=== PATIENT | female | born 1995 | race Caucasian/White ===

== ENCOUNTER → 2018-04-09 10:59 | Outpatient (CLI) | payer MEDICAID, SELFPAY ==
--- NOTE | 2018-04-09 11:03 | XR_ITS ---
XR wrist LT w scaphoid HISTORY ITS.REASON: pain ORDERING PHYSICIAN: Maryam Weldon PATIENT AGE: 23 years Comparison: None TECHNIQUE: 4 views including scaphoid view FINDINGS: No fracture or dislocation. No lytic or blastic change. There is normal mineralization.. The joint spaces are well-preserved. No significant degenerative/arthritic changes. No erosive changes evident.. IMPRESSION: Negative wrist
== END ==
PROVIDERS: PCP Nurse Practitioner Family; Visit Provider Nurse Practitioner Family
DX: M25.532 Pain in left wrist (principal)
CPT/HCPCS: 73110

== ENCOUNTER → 2018-04-19 18:06 | Outpatient (CLI) | payer MEDICAID, SELFPAY ==
[2018-04-19 18:55] LABS: Basophils % 0.3 % (0.1-2.0); Eosinophils # 0.3 K/mm3 (0.0-0.4); Eosinophils % 3.1 % (0.1-12.0); Hematocrit 41.8 % (37.0-47.0); Lymphocytes # 2.7 K/mm3 (0.7-4.5); Lymphocytes % 28.8 % (10-50); Mean Corpuscular Hemoglobin 24.2 pg (27.0-31.2); Mean Corpuscular Volume 77.9 fl (81-99); Mean Platelet Volume 8.4 fl (7.4-10.4); Monocytes # 0.4 K/mm3 (0.1-1.0); Monocytes % 3.8 % (1.7-9.3); Neutrophils % 64.1 % (37.0-80.0); Platelet Count 384 K/mm3 (142-424); Red Blood Count 5.37 M/mm3 (4.20-5.40); Red Cell Distribution Width 15.7 % (11.5-17.5); White Blood Count 9.4 K/mm3 (4.8-10.8)
[2018-04-19 19:18] LABS: Alanine Aminotransferase 20 U/L (12-78); Albumin Level 4.6 gm/dL (3.4-5.0); Albumin/Globulin Ratio 1.2 (1.1-1.8); Alkaline Phosphatase 116 U/L (46-116); Anion Gap 16.8 mEq/L (5-15); Aspartate Amino Transferase 18 U/L (15-37); Bilirubin,Total 0.4 mg/dL (0.2-1.0); Blood Urea Nitrogen 1 mg/dL (7-18); Calcium 9.6 mg/dL (8.5-10.1); Carbon Dioxide 26 mmol/L (21.0-32.0); Chloride 104 mmol/L (98-107); Chol/HDL Ratio 3.3 (1-3.5); Cholesterol 183 mg/dL (140-200); Creatinine,Serum 0.56 mg/dL (0.55-1.02); Estimated Glomerular Filt Rate 135 ml/min (>60); Free T4 (Free Thyroxine) 0.98 ng/dl (0.76-1.46); GFR (African American) 164 ML/MIN (>60); Globulin 3.7 gm/dl (1.3-3.2); Glucose 88 mg/dL (74-106); HDL Cholesterol 55 mg/dL (29-89); LDL Cholesterol 103 mg/dL (0-130); Potassium 3.8 mmoL/L (3.5-5.1); Sodium 143 mmol/L (136-145); Thyroid Stimulating Hormone 2.52 uIU/ml (0.358-3.740); Total Protein,Serum 8.3 gm/dL (6.4-8.2); Triglycerides 123 mg/dL (30-200); VLDL Cholesterol 25 mg/dL (0-40)
[2018-04-19 19:19] LABS: C-Reactive Protein < 0.2 mg/L (0.0-0.9)
[2018-04-19 19:26] LABS: Erythrocyte Sedimentation Rate 21 mm/hr (0-20)
[2018-04-22 03:56] LABS: RA Latex Turbid. <10.0 IU/mL (0.0-13.9)
[2018-04-22 14:17] LABS: Anti-Centromere B Antibodies <0.2 AI (0.0-0.9); Anti-Jo-1 <0.2 AI (0.0-0.9); Anti-Smith Antibody <0.2 AI (0.0-0.9); Antichromatin Antibodies <0.2 AI (0.0-0.9); Antiscleroderma-70 Antibodies <0.2 AI (0.0-0.9); RNP Antibodies <0.2 AI (0.0-0.9); Sjogren's Anti-SS-A <0.2 AI (0.0-0.9); Sjogren's Anti-SS-B <0.2 AI (0.0-0.9)
[2018-04-22 16:20] LABS: Anti-DNA (DS) Ab Qn 1 IU/mL (0-9); Vitamin D 25 Hydroxy 21.2 ng/mL (30.0-100.0)
[2018-04-23 06:09] LABS: Anti-Cyclic Citrullinated Pept 14 units (0-19)
== END ==
PROVIDERS: Visit Provider Nurse Practitioner Family
DX: R53.83 Other fatigue (principal); M25.532 Pain in left wrist; E55.9 Vitamin D deficiency, unspecified
CPT/HCPCS: 80053; 80061; 82652; 84439; 84443; 85025; 85651; 86140; 86200; 86225; 86235; 86431

== ENCOUNTER → 2018-04-23 09:09 | Outpatient (CLI) | payer MEDICAID, SELFPAY ==
--- NOTE | 2018-04-23 09:11 | FL_ITS ---
EXAM: Barium swallow/esophagram. INDICATION: ITS.REASON: Dysphagia ORDERING PHYSICIAN: Ivan Adams MD PATIENT AGE: 23 years COMPARISON: None TECHNIQUE: In the upright position the patient was observed to swallow barium in both the AP and lateral view. The cervical esophagus was examined under fluoroscopy with images obtained. The patient was then placed prone in the right anterior oblique position and was observed to swallow barium with Valsalva technique . FLUOROSCOPY TIME: 53 seconds FINDINGS: There was no evidence of aspiration. There was normal peristalsis. No filling defects or mucosal abnormalities. No masses or strictures. There is a small sliding hiatal with a mildly constricting Schatzki's ring. This did permit the passage of a 12.5 mm barium tablet without difficulty. IMPRESSION: Mildly constricting chest is ring with small sliding hiatal hernia
[2018-04-23 11:17] LABS: Basophils % 0.4 % (0.1-2.0); Eosinophils # 0.3 K/mm3 (0.0-0.4); Eosinophils % 3.9 % (0.1-12.0); Hematocrit 41.6 % (37.0-47.0); Hemoglobin 12.9 g/dL (12.2-16.2); Lymphocytes # 1.9 K/mm3 (0.7-4.5); Lymphocytes % 26.5 % (10-50); Mean Corpuscular Hemoglobin 23.8 pg (27.0-31.2); Mean Platelet Volume 8.1 fl (7.4-10.4); Monocytes # 0.4 K/mm3 (0.1-1.0); Monocytes % 5.2 % (1.7-9.3); Neutrophils # 4.5 K/mm3 (1.8-7.8); Platelet Count 323 K/mm3 (142-424); Red Blood Count 5.41 M/mm3 (4.20-5.40); Red Cell Distribution Width 15.3 % (11.5-17.5); White Blood Count 7.1 K/mm3 (4.8-10.8)
[2018-05-03 20:09] LABS: Epstein-Barr DNA Quant, PCR NEGATIVE
== END ==
PROVIDERS: PCP Nurse Practitioner Family; Visit Provider Otolaryngology
DX: R13.10 Dysphagia, unspecified (principal)
CPT/HCPCS: 36415; 74220; 85025; 87799

== ENCOUNTER → 2018-04-23 10:08 | Outpatient (CLI) | payer MEDICAID, SELFPAY | PROVIDERS: PCP Emergency Medicine; Visit Provider Otolaryngology | DX: R13.10 Dysphagia, unspecified (principal) | CPT/HCPCS: 36415; 85025; 87799 ==

== ENCOUNTER → 2019-12-01 17:01 | Outpatient (CLI) | payer MEDICAID, SELFPAY ==
[2019-12-01 17:14] LABS: Basophils % 0.3 % (0.1-2.0); Eosinophils # 0.3 K/mm3 (0.0-0.4); Eosinophils % 2.7 % (0.1-12.0); Hematocrit 38.3 % (37.0-47.0); Hemoglobin 12.5 g/dL (12.2-16.2); Lymphocytes # 3.6 K/mm3 (0.7-4.5); Lymphocytes % 32.4 % (10-50); Mean Corpuscular HGB Conc 32.7 g/dL (31.8-35.4); Mean Corpuscular Volume 76.5 fl (81-99); Mean Platelet Volume 8.7 fl (7.4-10.4); Monocytes # 0.4 K/mm3 (0.1-1.0); Monocytes % 3.6 % (1.7-9.3); Neutrophils # 6.7 K/mm3 (1.8-7.8); Neutrophils % 61.1 % (37.0-80.0); Platelet Count 392 K/mm3 (142-424); Red Cell Distribution Width 15.8 % (11.5-17.5)
[2019-12-01 17:15] LABS: Chloride 105 mmol/L (98-107); Potassium 4.1 mmoL/L (3.5-5.1); Sodium 139 mmol/L (136-145)
[2019-12-01 17:18] LABS: Alanine Aminotransferase 26 U/L (12-78); Albumin Level 4.7 g/dl (3.5-5.0); Albumin/Globulin Ratio 1.5 (1.1-1.8); Alkaline Phosphatase 117 U/L (38-126); Anion Gap 13.1 mEq/L (5-15); Aspartate Amino Transferase 29 U/L (14-36); Bilirubin,Total 0.5 mg/dl (0.2-1.3); Carbon Dioxide 25 mmol/L (22.0-30.0); Cholesterol 198 mg/dl (140-200); Estimated Glomerular Filt Rate 153 ml/min (>60); GFR (African American) 185 ML/MIN (>60); Globulin 3.2 g/dL (1.3-3.2); Total Protein,Serum 7.9 g/dl (6.3-8.2); Triglycerides 165 mg/dl (30-150); VLDL Cholesterol 33 mg/dL (0-40)
[2019-12-01 17:19] LABS: Calcium 9.7 mg/dl (8.4-10.2); Chol/HDL Ratio 3.7 (1-3.5); Glucose 101 mg/dl (74-100); HDL Cholesterol 54 mg/dl (40-60)
[2019-12-01 17:30] LABS: Direct LDL Cholesterol 122.52 mg/dL (100-129)
[2019-12-01 17:36] LABS: T4 (Thyroxine) 11.7 ug/dl (5.53-11.0)
[2019-12-01 17:49] LABS: Thyroid Stimulating Hormone 2.39 uIU/mL (0.465-4.68)
[2019-12-01 21:34] LABS: Blood Urea Nitrogen < 2 mg/dl (7-17)
[2019-12-07 08:33] LABS: 1,25 Dihydroxy Vitamin D 83 pg/mL (.); 1,25-Dihydroxy, Vitamin D-2 <10 pg/mL (.); 1,25-Dihydroxy, Vitamin D-3 83 pg/mL (.)
== END ==
PROVIDERS: Visit Provider Physician Assistant
DX: R53.83 Other fatigue (principal); R63.5 Abnormal weight gain; E67.3 Hypervitaminosis D
CPT/HCPCS: 80053; 80061; 82652; 84436; 84443; 85025

== ENCOUNTER → 2019-12-17 11:01 | Outpatient (CLI) | payer MEDICAID, SELFPAY ==
--- NOTE | 2019-12-17 11:03 | FL_ITS ---
PROCEDURE: FL BARIUM SWALLOW MODIFIED CLINICAL INDICATION: Dyphagia COMPARISON: No exams were available for comparison TECHNIQUE: Patient administered varying consistencies of barium contrast, while viewed in lateral position under real-time fluoroscopy with cine recording. FLUOROSCOPY TIME: The study was performed in conjunction with speech pathologist. Please see that report & recommendations. FINDINGS: Patient was given varying consistencies of barium. No tracheal aspiration or obvious penetration. The patient was only able to swallow small volume at a time IMPRESSION: . No aspiration or penetration Please see speech pathologist report and recommendations. Dictated by: Liam Houser MD 12/23/2019 16:04 Electronically signed by Liam Houser MD in [place] 12/23/2019 16:04
--- NOTE | 2019-12-17 13:15 | HMH.SLMBS2 ---
Speech & Language Evaluation Speech/Language Mod Barium Swallow Start: 12/17/19 11:42 Freq: once Status: Complete Protocol: Document 12/17/19 12:45 ERINN (Rec: 12/17/19 13:14 ERINN [id number]) General Information General Current Food Consistancy Regular,Thin Liquids Dentition Good Dentition Oxygen Status Room Air Facial Symmetry Symmetrical Patient Orientation Person,Place,Time,Situation Ability to Follow Directions Excellent Communication Ability No Impairment MBS Recommendations Diet Dietary Recommendations Regular,Thin Liquids Treatment/Strategies Treatment Recommendation Base of Tongue Exercises,Vocal Cord Adduction Exer Referrals/Other Other Recommendations Ms. London is having a scope on the 05 of January. Mod Barium Swallow Impressions Summary and Impressions Oral Phase Impression No Impairment (WFL) Oral Phase Summary Ms. London was given the following consistencies: thins via spoon, open cup, straw, pudding, pureed, mechanical soft, regular, mixed, and pill with thin wash. Pharyngeal Phase Impression Mild Impairment Pharyngeal Phase Summary Ms. London exhibited premature spillage over the back of the tongue and flash penetration with consecutive swallows of thin liquids however, inconsistent during trials. Speech/Language MBS Assessment/Goals/Plan Assessment Date of Evaluation: 12/17/19 Evaluation Type Initial Certification Assessment/Problems feels like something stuck Does Patient Qualify for Service Yes Qualify/Failure Comment Ms. London would benefit from dysphagia therapy to target decreasing premature spillage into laryngeal vestibule and flash penetration into laryngeal vestibule. Recommendations PHYSICIAN CERTIFICATION: The specified therapy services are required, authorized, and reviewed every 30 days. Pt will be seen # times/week 2 for # weeks 4 Diet Recommendations Normal Liquid Type Recommendations Normal/Thin Plan Anticipate reaching STG in # weeks 2 Anticipate reaching LTG in # weeks 4 Pt/Guardian verbally ack understanding Yes of dx/prognosis/goals G -code Required No STG-Other Comment/Non-Specific Ms. London will improve
== END ==
PROVIDERS: PCP Physician Assistant; Visit Provider Physician Assistant
DX: R13.10 Dysphagia, unspecified (principal)
CPT/HCPCS: 70371; 92611

== ENCOUNTER → 2020-01-05 12:12 | Outpatient (CLI) | payer MEDICAID, SELFPAY ==
[2020-01-05 20:19] LABS: Coronavirus 19 IgG Antibody Positive (Negative); Coronavirus 19 IgM Antibody Negative (Negative)
== END ==
PROVIDERS: Visit Provider Surgery
DX: Z01.818 Encounter for other preprocedural examination (principal)
CPT/HCPCS: 36415; 86328

== ENCOUNTER 2020-01-06 07:17 | Day surgery (SDC) | payer MEDICAID, SELFPAY ==
[2020-01-06 07:35] VITALS: BMI 28.6
[2020-01-06 07:39] VITALS: BP 158/90; PULSE 109; RESP 18; TEMP 37.2; O2SAT 97
[2020-01-06 07:55] LABS: Urine Pregnancy, HCG Qual. Negative (Negative)
--- NOTE | 2020-01-06 08:01 | P.PN_ITS ---
[facility] Anesthesia Checklist - Patient Identification Patient Identification: Arm Band, Verbal (Name & ) - Structural Data Admitted From: Home Planned Operative Procedure/s: EGD Consent for Planned Operative Procedure(s) Verified: Yes Verified Documents: Surgical Consent, History and Physical - NPO Status Verified Time NPO: 00:00 - Chart Verification Results Verified: HCG - Additional verifications Patient : No Anesthesia Reactions: No - Airway Assessment C-Spine Mobility Assessed: Yes TMJ Mobility Assessed: Yes Dentition: Good Dentition - Neurological Assessment Level of Consciousness: Awake, Alert, Appropriate, Follows Commands Hx Seizures: No Numbness or tingling in extremities: No - Anesthesia Plan Anesthesia Risk discussed: Yes Anesthesia Plan: Verified ASA Class: II Anesthesia Type: MAC [facility] History I have reviewed the patient's past medical history: Yes Medical History: Reports:: Anxiety Denies:: Internal Pacemaker, Seizures *Have you ever received a pneumonia vaccine?: No *Have you received a flu vaccine this season?: No (NA) Anesthesia experience/problems:: No prior complications Laterality Cases: Bilateral: Tonsillectomy Other Surgeries: Yes: Other. No: Pacemaker Amputation: No Fractures: No - *Social History Smoking Status: Never smoker Alcohol Intake: never Alcohol Intake Frequency:: holidays/special occasions only Substance Use Type: denies use *Occupational Status:: unemployed *Travel in the last 8 weeks: None (NA) - Psychiatric History Pschychiatric History:: Reports:: Anxiety Family Hx:: No significant family history
[2020-01-06 08:34] VITALS: O2SAT 98
--- NOTE | 2020-01-06 08:48 | HMH.SCOPE ---
- Procedure: Date: 01/06/20 Procedure Performed:: Esophagogastroduodenoscopy with biopsy and dilatation Indications:: Patient is a 24-year-old female. She is referred by Ida Garcia for upper endoscopy for symptoms of dysphagia. She states that she has had this most of my life . She states that the more problematic foods are rice, bread, and steak. She actually had symptoms of esophageal food impaction and was seen in emergency department in [place] and her symptoms were able to be managed without endoscopic intervention. She has apparently seen Dr. Adams she does not recall this as she did have a barium swallow done ordered by Dr. Adams in April 2018 which revealed a small hiatal hernia and mildly constricting Schatzki's ring. She does have a strong family history of symptoms of dysphagia. Performing Provider:: Magnus Edwards MD Referring Provider:: Ida Garcia Sedation:: Propofol Procedure:: Patient was taken to endoscopy procedure room. She was positioned in a lateral decubitus position. Adequate intravenous sedation was achieved. Olympus endoscope was inserted via the oropharynx and advanced through the esophagus. At the gastroesophageal junction there was some evidence consistent with reflux esophagitis. There is some minor luminal narrowing but no well-formed Schatzki's ring. Stomach was cannulated and insufflated. Retroflexion revealed tiny hiatal hernia. There is some diffuse nonerosive gastritis. Gastric antral mucosal biopsy was obtained for CLOtest for H. pylori. Pylorus was traversed. Duodenum appeared unremarkable. Gastric biopsy was obtained for histopathologic analysis. A couple biopsies were obtained at the gastroesophageal junction. Dilatation was performed at the gastroesophageal junction using the pneumatic dilator sequentially to 15 mm, 16.5 mm, and 18 mm. A couple of distal esophageal biopsies were obtained for histopathologic analysis. Stomach was desufflated and the endoscope was withdrawn. Findings:: Small hiatal hernia Mild diffuse nonerosive gastritis Evidence of distal esophagitis at the gastroesophageal junction, dilatation performed to 18 mm Recommendations:: Plan to follow-up on histopathology and ELOISA status. Treat appropriately. It appears as though she is not on any H2 blockers or proton pump inhibitors. This may be added. Consideration for repeat EGD with dilatation up to 20 mm may be considered. Complications:: None immediately apparent Estimated blood obtained (mL): 2
[2020-01-06 08:55] VITALS: BP 122/73; PULSE 93; RESP 16; TEMP 36.6; O2SAT 96
[2020-01-06 09:05] VITALS: BP 121/68; PULSE 92; RESP 16; O2SAT 97
[2020-01-06 09:15] VITALS: BP 118/69; PULSE 95; RESP 16; O2SAT 100
[2020-01-06 09:25] VITALS: BP 128/60; PULSE 91; RESP 16; O2SAT 100
== END 2020-01-06 09:25 | disposition home or self-care (01) ==
LOC: OUTP 07:19
PROVIDERS: PCP Emergency Medicine; Visit Provider Surgery
PROC: 0DJ08ZZ Inspection of Upper Intestinal Tract, Via Natural or Artificial Opening Endoscopic (ICD-10-PCS; CPT 43235; principal; 2020-01-06 08:30)
DX: K29.60 Other gastritis without bleeding (principal); K44.9 Diaphragmatic hernia without obstruction or gangrene; K20.8 Other esophagitis; Z83.79 Family history of other diseases of the digestive system; F41.9 Anxiety disorder, unspecified; Z90.89 Acquired absence of other organs; Z88.0 Allergy status to penicillin; Z79.3 Long term (current) use of hormonal contraceptives
CPT/HCPCS: 43239; 43249; 81025; 87339; C1726

== ENCOUNTER → 2021-10-27 11:00 | Outpatient (CLI) | payer MEDICAID, SELFPAY ==
[2021-10-27 13:32] LABS: Basophils # 0.1 K/mm3 (0-0.2); Basophils % 0.9 % (0.1-2.0); Eosinophils # 0.3 K/mm3 (0.0-0.4); Eosinophils % 3.9 % (0.1-12.0); Hematocrit 39.2 % (37.0-47.0); Hemoglobin 12.5 g/dL (12.2-16.2); Lymphocytes # 2.3 K/mm3 (0.7-4.5); Mean Corpuscular HGB Conc 31.8 g/dL (31.8-35.4); Mean Corpuscular Hemoglobin 23.7 pg (27.0-31.2); Mean Corpuscular Volume 74.6 fl (81-99); Mean Platelet Volume 9.1 fl (7.4-10.4); Monocytes # 0.4 K/mm3 (0.1-1.0); Monocytes % 4.5 % (1.7-9.3); Neutrophils # 4.8 K/mm3 (1.8-7.8); Neutrophils % 61.9 % (37.0-80.0); Platelet Count 445 K/mm3 (142-424); Red Blood Count 5.26 M/mm3 (4.20-5.40); Red Cell Distribution Width 16.8 % (11.5-17.5); White Blood Count 7.8 K/mm3 (4.8-10.8)
[2021-10-27 13:55] LABS: Alanine Aminotransferase 24 U/L (12-78); Albumin Level 4.5 g/dl (3.5-5.0); Albumin/Globulin Ratio 1.6 (1.1-1.8); Alkaline Phosphatase 115 U/L (38-126); Anion Gap 15.2 mEq/L (5-15); Aspartate Amino Transferase 26 U/L (14-36); Bilirubin,Total 0.4 mg/dl (0.2-1.3); Blood Urea Nitrogen 3 mg/dl (7-17); Calcium 9.5 mg/dl (8.4-10.2); Carbon Dioxide 25 mmol/L (22.0-30.0); Chloride 104 mmol/L (98-107); Chol/HDL Ratio 4.3 (1-3.5); Cholesterol 178 mg/dl (140-200); Estimated Glomerular Filt Rate 150 ml/min (>60); GFR (African American) 182 ML/MIN (>60); Globulin 2.9 g/dL (1.3-3.2); Glucose 102 mg/dl (74-100); HDL Cholesterol 41 mg/dl (40-60); Potassium 4.2 mmoL/L (3.5-5.1); Sodium 140 mmol/L (136-145); Total Protein,Serum 7.4 g/dl (6.3-8.2); Triglycerides 158 mg/dl (30-150); VLDL Cholesterol 32 mg/dL (0-40)
[2021-10-27 14:25] LABS: Thyroid Stimulating Hormone 2.14 uIU/mL (0.465-4.68)
[2021-10-27 14:34] LABS: 25-OH Vitamin D, Total 20.1 ng/mL (30-100)
[2021-10-27 14:54] LABS: Vitamin B12 283 pg/mL (239-931)
== END ==
PROVIDERS: PCP Physician Assistant; Visit Provider Physician Assistant
DX: R53.83 Other fatigue (principal); E55.9 Vitamin D deficiency, unspecified; Z79.899 Other long term (current) drug therapy
CPT/HCPCS: 80053; 80061; 82306; 82607; 84443; 85025

== ENCOUNTER → 2023-04-18 23:25 | Outpatient (CLI) | payer MEDICAID, SELFPAY ==
[2023-04-18 19:14] LABS: Basophils % 0.5 % (0.1-2.0); Eosinophils # 0.3 K/mm3 (0.0-0.4); Eosinophils % 4.2 % (0.1-12.0); Hematocrit 39.4 % (37.0-47.0); Hemoglobin 12.8 g/dL (12.2-16.2); Lymphocytes % 25.3 % (10-50); Mean Corpuscular HGB Conc 32.6 g/dL (31.8-35.4); Mean Corpuscular Hemoglobin 25.3 pg (27.0-31.2); Mean Corpuscular Volume 77.8 fl (81-99); Mean Platelet Volume 9.4 fl (7.4-10.4); Monocytes # 0.3 K/mm3 (0.1-1.0); Monocytes % 4.3 % (1.7-9.3); Neutrophils # 5.1 K/mm3 (1.8-7.8); Neutrophils % 65.7 % (37.0-80.0); Platelet Count 327 K/mm3 (142-424); Red Blood Count 5.06 M/mm3 (4.20-5.40); Red Cell Distribution Width 16.1 % (11.5-17.5); White Blood Count 7.8 K/mm3 (4.8-10.8)
[2023-04-18 19:28] LABS: Alanine Aminotransferase 20 U/L (12-78); Albumin Level 4.6 g/dl (3.5-5.0); Albumin/Globulin Ratio 1.4 (1.1-1.8); Alkaline Phosphatase 106 U/L (38-126); Anion Gap 17.1 mEq/L (5-15); Aspartate Amino Transferase 28 U/L (14-36); Bilirubin,Total 0.4 mg/dl (0.2-1.3); Blood Urea Nitrogen 5 mg/dl (7-17); Calcium 9.6 mg/dl (8.4-10.2); Carbon Dioxide 24 mmol/L (22.0-30.0); Chloride 106 mmol/L (98-107); Chol/HDL Ratio 4.8 (1-3.5); Cholesterol 187 mg/dl (140-200); Estimated Glomerular Filt Rate 120 ml/min (>60); GFR (African American) 145 ML/MIN (>60); Globulin 3.2 g/dL (1.3-3.2); Glucose 98 mg/dl (74-100); HDL Cholesterol 39 mg/dl (40-60); Potassium 4.1 mmoL/L (3.5-5.1); Sodium 143 mmol/L (136-145); Total Protein,Serum 7.8 g/dl (6.3-8.2); Triglycerides 124 mg/dl (30-150); VLDL Cholesterol 25 mg/dL (0-40)
[2023-04-18 19:39] LABS: Direct LDL Cholesterol 121.15 mg/dL (100-129)
[2023-04-18 19:43] LABS: 25-OH Vitamin D, Total 21.9 ng/mL (30-100)
[2023-04-18 19:57] LABS: Thyroid Stimulating Hormone 2.22 uIU/mL (0.465-4.68)
== END ==
PROVIDERS: PCP Physician Assistant; Visit Provider Nurse Practitioner Family
DX: R53.83 Other fatigue (principal); E55.9 Vitamin D deficiency, unspecified; Z68.29 Body mass index [BMI] 29.0-29.9, adult
CPT/HCPCS: 80053; 80061; 82306; 84443; 85025

== ENCOUNTER 2023-05-02 10:17 | Day surgery (SDC) | payer MEDICAID, SELFPAY ==
[2023-05-02 10:27] VITALS: BMI 28.1
[2023-05-02 10:35] LABS: Urine Pregnancy, HCG Qual. Negative (Negative)
[2023-05-02 10:36] VITALS: BP 130/74; PULSE 92; RESP 18; TEMP 36.2; O2SAT 97
--- NOTE | 2023-05-02 11:36 | EXP.ANES.CKL ---
[facility] Disclaimer: The information contained in this section may have been updated after the patient was seen, as this information can be updated by other users. Medical History Anxiety Depression Febrile seizure Panic attacks Surgical History History of tonsillectomy and adenoidectomy Family History (Updated 05/02/23 @ 10:35 by Zurdo Cook RN) Other No significant family history Social History Smoking Status: Never smoker alcohol intake: never substance use type: denies use current occupational status: unemployed Travel in the last 8 weeks: None number of children: 0 caffeine: No [facility] Anesthesia Checklist Patient Identification Patient Identification: Arm Band Structural Data Admitted From: Home Planned Operative Procedure/s: EGD with Dilation Consent for Planned Operative Procedure(s) Verified: Yes Verified Documents: Surgical Consent and History and Physical NPO Status Verified Time NPO: 00:00 Additional verifications Anesthesia Reactions: No Airway Assessment Mallampati Score:: Class II C-Spine Mobility Assessed: Yes TMJ Mobility Assessed: Yes Dentition: Good Dentition Neurological Assessment Level of Consciousness: Awake and Alert Anesthesia Plan Anesthesia Risk discussed: Yes Anesthesia Plan: Verified ASA Class: II Anesthesia Type: MAC
--- NOTE | 2023-05-02 11:56 | HMH.SCOPE ---
Procedure: Date: 05/02/23 Patient Date of :: 1995 Procedure Performed:: EGD Indications:: The patient is a 28 year old who presents for EGD evaluation of dysphagia. The patient has an EGD in 2019 for dysphagia and had empiric dilatation with 18 mm tts balloon. Esophageal biopsies showed greater than 40 eos/hpf. Performing Provider:: Rhys Galindo MD Referring Provider:: Ida Garcia PA-C Sedation:: See RN records Procedure:: The gastroscope was gently passed through the incisoral orifice into the oral cavity and under direct visualization the esophagus was intubated. The endoscope was passed down the esophagus, through the stomach, and into the duodenum. Color, texture, mucosa, and anatomy of the esophagus, stomach, and duodenum were carefully examined with the scope. Findings:: Oropharynx: normal Esophagus: Linear furrowing, corrugated esophagus, white plaques/exudates. There was smaller appearance caliber of esophagus in distal esophagus. Dilatation performed with 12-15 mm tts balloon. EG Junction: measured at 40 cm Cardia: normal Fundus: normal Body: normal Antrum: normal Duodenal bulb: normal Duodenum (second and third portion): normal Impression: Corrugated esophagus and linear furrowing of esophagus Recommendations:: Await pathology results Pantoprazole 40 mg once daily Follow up in GI office Repeat EGD in 2-3 months Complications:: None Estimated blood obtained (mL): 0 Colonoscopy Component Colonoscopy Component Was a colonoscopy performed during today's procedure?: No
[2023-05-02 11:59] VITALS: BP 110/72; PULSE 105; RESP 17; TEMP 36.6; O2SAT 94
[2023-05-02 12:09] VITALS: BP 98/60; PULSE 90; RESP 18; O2SAT 96
[2023-05-02 12:19] VITALS: BP 104/67; PULSE 87; RESP 17; O2SAT 95
[2023-05-02 12:40] VITALS: BP 109/71; PULSE 91; RESP 16; O2SAT 97
[2023-05-02 13:40] VITALS: O2SAT 99
== END 2023-05-02 12:50 | disposition home or self-care (01) ==
PROVIDERS: PCP Physician Assistant; Visit Provider Internal Medicine
PROC: 0DJ08ZZ Inspection of Upper Intestinal Tract, Via Natural or Artificial Opening Endoscopic (ICD-10-PCS; CPT 43235; principal; 2023-05-02 10:30)
DX: K20.0 Eosinophilic esophagitis (principal); K22.89 Other specified disease of esophagus
CPT/HCPCS: 43249; 81025; C1726

== ENCOUNTER 2023-10-17 10:09 | Day surgery (SDC) | payer MEDICAID, SELFPAY ==
[2023-10-15 14:58] VITALS: BMI 31.3
[2023-10-17 11:16] LABS: Urine Pregnancy, HCG Qual. Negative (Negative)
[2023-10-17 11:19] VITALS: BP 112/62; PULSE 76; RESP 18; TEMP 36.6; O2SAT 98
[2023-10-17 11:28] VITALS: BMI 31.3
[2023-10-17] MEDS: LACTATED RINGERS 1000ML 1,000 ML 25 ML IV (11:30)
--- NOTE | 2023-10-17 12:04 | P.PNANES_ITS ---
[facility] Disclaimer: The information contained in this section may have been updated after the patient was seen, as this information can be updated by other users. Medical History Febrile seizure Panic attacks Depression Anxiety Surgical History History of tonsillectomy and adenoidectomy Family History Other No significant family history Social History Smoking Status: Never smoker alcohol intake: never substance use type: denies use current occupational status: student Travel in the last 8 weeks: None number of children: 0 caffeine: No [facility] Anesthesia Checklist Patient Identification Patient Identification: Arm Band and Verbal (Name & ) Structural Data Admitted From: Home Planned Operative Procedure/s: EGD Consent for Planned Operative Procedure(s) Verified: Yes NPO Status Verified Time NPO: 00:00 Chart Verification Results Verified: HCG Additional verifications Anesthesia Reactions: No Airway Assessment Mallampati Score:: Class II C-Spine Mobility Assessed: Yes TMJ Mobility Assessed: Yes Dentition: Good Dentition Neurological Assessment Level of Consciousness: Awake Hx Seizures: No Numbness or tingling in extremities: No Anesthesia Plan Anesthesia Risk discussed: Yes Anesthesia Plan: Verified ASA Class: II Anesthesia Type: MAC
[2023-10-17 12:19] VITALS: O2SAT 100
[2023-10-17 12:30] VITALS: BP 114/57; PULSE 92; RESP 18; TEMP 36.4; O2SAT 99
--- NOTE | 2023-10-17 12:30 | P.PCN_ITS ---
Procedure: Date: 10/17/23 Patient Date of :: 1995 Procedure Performed:: EGD Indications:: The patient is a 28-year-old who presents for EGD for dysphagia. The patient has a past medical history of eosinophilic esophagitis. The patient has daily use of pantoprazole 40 mg once daily. The patient had an EGD 6 months ago that showed narrowing of the distal esophagus. Empiric dilatation was performed at that time with a TTS balloon up to 15 mm. Performing Provider:: Rhys Galindo MD Referring Provider:: Heber Nicole APRN Sedation:: See RN records Procedure:: The gastroscope was gently passed through the incisoral orifice into the oral cavity and under direct visualization the esophagus was intubated. The endoscope was passed down the esophagus, through the stomach, and into the duodenum. Col or, texture, mucosa, and anatomy of the esophagus, stomach, and duodenum were carefully examined with the scope. Findings:: There was longitudinal furrowing of the esophagus. There was corrugated appearance of the mid to distal esophagus. Biopsies were obtained with a cold forceps for histology. Dilatation was performed with a TTS balloon 15 to 18 mm. There was some retained food material and liquid in the stomach. Examined duodenum appeared normal. The EGD procedure was brief secondary to the patient coughing during the procedure. Recommendations:: Await pathology results Continue pantoprazole once daily before breakfast Return for EGD as needed Consider gastric emptying study if patient has symptoms suggestive of gastroparesis Complications:: None Estimated blood obtained (mL): 0 Colonoscopy Component Colonoscopy Component Was a colonoscopy performed during today's procedure?: No
--- NOTE | 2023-10-17 12:34 | HMH.SCOPE ---
Procedure: Patient Date of :: 1995 Performing Provider:: Rhys Galindo MD
[2023-10-17 12:40] VITALS: BP 108/70; PULSE 60; RESP 18; O2SAT 95
[2023-10-17 13:10] VITALS: BP 110/70; PULSE 61; RESP 18; O2SAT 97
[2023-10-17 13:32] VITALS: BP 122/78; PULSE 65; RESP 18; O2SAT 97
== END 2023-10-17 13:36 | disposition home or self-care (01) ==
PROVIDERS: PCP Nurse Practitioner Family; Visit Provider Internal Medicine
PROC: 0DJ08ZZ Inspection of Upper Intestinal Tract, Via Natural or Artificial Opening Endoscopic (ICD-10-PCS; CPT 43235; principal; 2023-10-17 11:30)
DX: R13.10 Dysphagia, unspecified (principal); K20.0 Eosinophilic esophagitis
CPT/HCPCS: 43249; 43239; 81025; C1726